=== PATIENT | female | born 1960 | race Caucasian/White ===

== ENCOUNTER 2021-06-26 01:24 | Emergency (ER) | payer OTHER ==
[~2021-06-26] VITALS: Ht 170.2 cm; Wt 84.1 kg
[2021-06-26 02:21] LABS: BASO # 0.03 K/mm3 (0.02-0.10); EOS # 0.13 K/mm3 (0.04-0.40); EOS % 1.1 % (1.0-5.0); HEMATOCRIT 43.9 % (37.0-47.0); HEMOGLOBIN 15.2 g/dL (12.5-16.0); LYMPH# 0.87 K/mm3 (1.50-4.00); MEAN CELL VOLUME 93 fl (78-100); MEAN CORPUSCULAR HEMOGLOBIN 32 pg (27-31); MEAN CORPUSCULAR HGB CONC 35 g/dL (33-37); MEAN PLATELET VOLUME 8.9 fl (7.4-10.4); MONO # 1.25 K/mm3 (0.20-0.80); NEU # 9.78 K/mm3 (1.40-6.50); PLATELET COUNT 304 K/mm3 (130-400); RED BLOOD COUNT 4.73 M/mm3 (4.10-5.30); RED CELL DISTRIBUTION WIDTH 12.6 % (11.5-14.5); WHITE BLOOD COUNT 12.1 K/mm3 (4.8-10.8)
[2021-06-26 02:34] LABS: ALBUMIN 4.3 g/dL (3.5-5.0); POTASSIUM 4.3 mmol/L (3.5-5.1)
[2021-06-26 02:35] LABS: CALCIUM 9.8 mg/dL (8.3-10.5)
[2021-06-26 02:36] LABS: TOTAL PROTEIN 6.9 g/dL (6.4-8.3)
[2021-06-26 02:38] LABS: TOTAL BILIRUBIN 0.7 mg/dL (0.2-1.2)
[2021-06-26] MEDS ORDERED: CRESTOR 10MG10 MG PO (03:11)
[2021-06-26] MEDS ORDERED: LOSARTAN POTASS50 M1 PO (03:11)
[2021-06-26] MEDS ORDERED: GLUCOPHAGE PO (03:12)
[2021-06-26] MEDS ORDERED: OZEMPIC1 MG/0.71 SQ (03:12)
[2021-06-26] MEDS ORDERED: EFFEXOR XR75 M2 PO (03:13)
[2021-06-26] MEDS ORDERED: ALDACTONE 25MG25 MG PO (03:13)
[2021-06-26] MEDS ORDERED: WELLBUTRIN XL150 M2 PO (03:13)
[2021-06-26] MEDS ORDERED: LINZESS72 MCG PO (03:14)
[2021-06-26] MEDS ORDERED: OXYCODONE HCL10 M1 PO (03:14)
[2021-06-26] MEDS ORDERED: ZOFRAN ODT4 MG PO (05:23)
[2021-06-26 05:57] VITALS: BP 113/71
== END 2021-06-26 06:41 | disposition home or self-care (01) ==
LOC: ED 01:24
PROVIDERS: Family Medicine
DX: A08.4 Viral intestinal infection, unspecified (principal); I48.91 Unspecified atrial fibrillation; I10 Essential (primary) hypertension; Z20.822 Contact with and (suspected) exposure to COVID-19; Z79.84 Long term (current) use of oral hypoglycemic drugs; Z79.899 Other long term (current) drug therapy
CPT/HCPCS: J2405; J3010; J7120

== ENCOUNTER 2021-07-08 06:01 | Emergency (ER) | payer OTHER ==
[~2021-07-08] VITALS: Ht 172.7 cm; Wt 81.8 kg
[~2021-07-08 06:01] MED LIST: ALDACTONE 25MG25 MG PO; CRESTOR 10MG10 MG PO; EFFEXOR XR75 M2 PO; GLUCOPHAGE PO; LINZESS72 MCG PO; LOSARTAN POTASS50 M1 PO; OXYCODONE HCL10 M1 PO; OZEMPIC1 MG/0.71 SQ; WELLBUTRIN XL150 M2 PO; ZOFRAN ODT4 MG PO
[2021-07-08 06:52] LABS: ALBUMIN 4.5 g/dL (3.5-5.0)
[2021-07-08 06:53] LABS: CALCIUM 10.1 mg/dL (8.3-10.5)
[2021-07-08 06:54] LABS: TOTAL PROTEIN 7.1 g/dL (6.4-8.3)
[2021-07-08 06:56] LABS: TOTAL BILIRUBIN 0.5 mg/dL (0.2-1.2)
[2021-07-08 06:58] LABS: BASO # 0.04 K/mm3 (0.02-0.10); EOS # 0.19 K/mm3 (0.04-0.40); EOS % 1.4 % (1.0-5.0); HEMATOCRIT 45.4 % (37.0-47.0); HEMOGLOBIN 15.4 g/dL (12.5-16.0); LYMPH# 1.38 K/mm3 (1.50-4.00); MEAN CELL VOLUME 94 fl (78-100); MEAN CORPUSCULAR HEMOGLOBIN 32 pg (27-31); MEAN CORPUSCULAR HGB CONC 34 g/dL (33-37); MEAN PLATELET VOLUME 9.1 fl (7.4-10.4); MONO # 0.76 K/mm3 (0.20-0.80); NEU # 11.53 K/mm3 (1.40-6.50); PLATELET COUNT 352 K/mm3 (130-400); RED BLOOD COUNT 4.85 M/mm3 (4.10-5.30); RED CELL DISTRIBUTION WIDTH 12.5 % (11.5-14.5)
[2021-07-08] MEDS ORDERED: ZOFRAN ODT4 MG PO (08:24)
[2021-07-08] MEDS ORDERED: METRONIDAZOLE500 M1 PO (08:24)
[2021-07-08 08:35] VITALS: BP 122/75
== END 2021-07-08 09:20 | disposition home or self-care (01) ==
LOC: ED 06:01
PROVIDERS: Family Medicine
DX: A08.4 Viral intestinal infection, unspecified (principal); D72.829 Elevated white blood cell count, unspecified; E66.9 Obesity, unspecified; Z68.27 Body mass index [BMI] 27.0-27.9, adult
CPT/HCPCS: J0696; J2405; J3010; J3360; J7030

== ENCOUNTER 2021-11-05 17:48 | Emergency (ER) | payer OTHER ==
[~2021-11-05 17:48] MED LIST changes: +METRONIDAZOLE500 M1 PO
[2021-11-05] MEDS ORDERED: COZAAR25 M1 PO (18:20)
[2021-11-05 19:38] LABS: HEMATOCRIT 40.3 % (37.0-47.0); HEMOGLOBIN 13.2 g/dL (12.5-16.0); MEAN CELL VOLUME 96 fl (78-100); MEAN CORPUSCULAR HEMOGLOBIN 31 pg (27-31); MEAN CORPUSCULAR HGB CONC 33 g/dL (33-37); MEAN PLATELET VOLUME 8.8 fl (7.4-10.4); PLATELET COUNT 201 K/mm3 (130-400); RED BLOOD COUNT 4.22 M/mm3 (4.10-5.30); RED CELL DISTRIBUTION WIDTH 12.4 % (11.5-14.5); WHITE BLOOD COUNT 3.3 K/mm3 (4.8-10.8)
[2021-11-05 19:50] LABS: ALBUMIN 4.1 g/dL (3.4-4.8); POTASSIUM 3.9 mmol/L (3.5-5.1)
[2021-11-05 19:52] LABS: TOTAL PROTEIN 6.5 g/dL (6.2-8.1)
[2021-11-05 19:54] LABS: TOTAL BILIRUBIN 0.3 mg/dL (0.2-1.2)
[2021-11-05 20:11] LABS: BAND 1 % (0-10); LYMPHOCYTE 7 % (20-51); MONOCYTE 15 % (3-10); NEUTROPHILS 74 % (42-75)
[2021-11-05 23:45] VITALS: BP 107/68
== END 2021-11-05 23:05 | disposition home or self-care (01) ==
LOC: ED 17:48
PROVIDERS: Family Medicine
DX: U07.1 COVID-19 (principal)
CPT/HCPCS: J1885; J7030

== ENCOUNTER → 2023-01-11 | Outpatient (CLI) | payer MEDICARE, OTHER ==
[~2023-01-11] MED LIST changes: +COZAAR25 M1 PO
== END ==
LOC: RAD 11:30
DX: E04.1 Nontoxic single thyroid nodule (principal)

== ENCOUNTER → 2023-05-03 | Outpatient (CLI) | payer OTHER | LOC: AMSURD 14:11 | DX: Z48.02 Encounter for removal of sutures (principal) ==

== ENCOUNTER → 2024-02-05 | Outpatient (CLI) | payer MEDICARE, OTHER | LOC: RAD 13:06 | DX: M19.012 Primary osteoarthritis, left shoulder (principal); M25.812 Other specified joint disorders, left shoulder; M75.52 Bursitis of left shoulder ==

== ENCOUNTER → 2024-02-13 | Outpatient (CLI) | payer MEDICARE, OTHER | LOC: RAD 08:39 | DX: M79.89 Other specified soft tissue disorders (principal); Z96.652 Presence of left artificial knee joint; Z87.828 Personal history of other (healed) physical injury and trauma; Z91.81 History of falling ==

== ENCOUNTER → 2024-05-19 | Outpatient (CLI) | payer OTHER, MEDICARE ==
[2024-05-19 13:58] LABS: BASO # 0.05 K/mm3 (0.02-0.10); EOS # 0.24 K/mm3 (0.04-0.40); EOS % 3.2 % (1.0-5.0); HEMATOCRIT 44.9 % (37.0-47.0); HEMOGLOBIN 14.7 g/dL (12.5-16.0); LYMPH# 1.83 K/mm3 (1.50-4.00); MEAN CELL VOLUME 96 fl (78-100); MEAN CORPUSCULAR HEMOGLOBIN 31 pg (27-31); MEAN CORPUSCULAR HGB CONC 33 g/dL (33-37); MEAN PLATELET VOLUME 8.6 fl (7.4-10.4); MONO # 0.64 K/mm3 (0.20-0.80); NEU # 4.76 K/mm3 (1.40-6.50); PLATELET COUNT 324 K/mm3 (130-400); RED BLOOD COUNT 4.69 M/mm3 (4.10-5.30); RED CELL DISTRIBUTION WIDTH 13.2 % (11.5-14.5); WHITE BLOOD COUNT 7.5 K/mm3 (4.8-10.8)
[2024-05-19 14:03] LABS: ALBUMIN 4.6 g/dL (3.4-4.8)
[2024-05-19 14:04] LABS: CALCIUM 10.7 mg/dL (8.3-10.5)
[2024-05-19 14:06] LABS: TOTAL PROTEIN 7.3 g/dL (6.2-8.1)
[2024-05-19 14:07] LABS: TOTAL BILIRUBIN 0.3 mg/dL (0.2-1.2)
== END ==
LOC: LAB 13:45
PROVIDERS: Family Medicine
DX: I10 Essential (primary) hypertension (principal); E78.00 Pure hypercholesterolemia, unspecified; E03.9 Hypothyroidism, unspecified; R73.03 Prediabetes

== ENCOUNTER → 2024-06-20 | Outpatient (CLI) | payer OTHER, MEDICARE | LOC: RAD 13:11 | DX: M75.112 Incomplete rotator cuff tear or rupture of left shoulder, not specified as traumatic (principal); M67.814 Other specified disorders of tendon, left shoulder; M19.012 Primary osteoarthritis, left shoulder; M75.52 Bursitis of left shoulder ==